=== PATIENT | male | born 1975 | race Caucasian/White ===

== ENCOUNTER → 2017-10-22 | Outpatient (REF) | payer BC, OTHER | LOC: M LAB REF 12:42 | DX: Z94.0 Kidney transplant status (principal) | CPT/HCPCS: 86900 ==

== ENCOUNTER → 2018-06-11 | Outpatient (CLI) | payer BC, OTHER | LOC: M RAD 16:06 | DX: N18.4 Chronic kidney disease, stage 4 (severe) (principal); I15.0 Renovascular hypertension; Z94.0 Kidney transplant status | CPT/HCPCS: G0365 ==

== ENCOUNTER → 2019-02-17 | Outpatient (CLI) | payer OTHER ==
[~2019-02-17] MED LIST: AMLO10TA5 PO; ASPI81TA83 OR; CALC1CAP31 PO; CARV3.12 PO; CELE10TA OR; CIPR-249 PO; FEBU40TA PO; FERR325T OR; FLAG500T PO; LEXA1TAB2 PO; MAGN500T2 OR; MULTIVIT OR; MYCO500T PO; NIAC500T64 PO; PRED5PAK PO; SODI325T9 PO; SODI650T PO; ULOR80TA PO
--- NOTE | 2019-02-17 08:19 | REP ---
Clinical: Preoperative assessment for kidney transplant surgery. Technique: Real time padron scale ultrasound examination using curved array transducer. Findings: I of the. Liver and pancreas are normal in contour, size, echogenicity without focal hepatic or pancreatic lesions identified. The spleen is mildly enlarged measuring 13.7 x 6.4 x 6.9 cm (splenic index equals 604). The gallbladder is normal and without gallstones, wall thickening, or pericholecystic fluid. No biliary ductal dilatation is appreciated and the common bile duct measures 3.3 mm diameter. The patient is status post bilateral [place] nephrectomy. Transplant kidney in the right lower quadrant measures 11.1 x 9.4 x 5.8 cm and appears mildly hyperechoic with few stable cystic changes measuring up to approximately 1.4 cm maximal diameter. No associated perinephric stranding or hydronephrosis noted. No ascites. Abdominal aorta appears normal and measures 1.7 cm maximal diameter with the left common iliac artery measuring 9.2 mm diameter and the right common iliac artery measuring 9.1 mm diameter. Impression: 1. Essentially stable appearance to the transplant kidney in the right lower quadrant with few cystic changes measuring up to 1.4 cm maximal diameter and no associated perinephric stranding or hydronephrosis. Electronically Signed by Jonny Ray MD 02/17/2019 08:11 A
== END ==
LOC: M RAD 07:15
PROVIDERS: ATTEND Internal Medicine Nephrology
DX: Z01.818 Encounter for other preprocedural examination (principal); N18.6 End stage renal disease

== ENCOUNTER → 2019-03-20 | Outpatient (REF) | payer OTHER ==
[~2019-03-20] MED LIST changes: -FEBU40TA PO; +FEBU40TA4 PO
[2019-03-20 19:23] LABS: CHOLESTEROL LEVEL 382 MG/DL (<200); CHOLESTEROL RISK RATIO 9.794 (<5); HDL CHOLESTEROL 39 MG/DL (>40); HEPATITIS B SURFACE ANTIGEN NEGATIVE (NEGATIVE); HEPATITIS C VIRUS ABY INDEX < 0.0 INDEX (<0.8); NON-HDL-C 343 MG/DL; TRIGLYCERIDES LEVEL 1085 MG/DL (<150)
[2019-03-21 09:49] LABS: HEPATITIS B SURFACE ANTIBODY POSITIVE (POSITIVE)
[2019-03-21 10:28] LABS: HEPATITIS B CORE ANTIBODY IGM NEGATIVE (NEGATIVE)
== END ==
LOC: M LAB REF 13:23
PROVIDERS: ATTEND Internal Medicine Nephrology
DX: N18.5 Chronic kidney disease, stage 5 (principal)

== ENCOUNTER → 2019-09-07 | Outpatient (CLI) | payer BC, OTHER ==
--- NOTE | 2019-09-10 11:35 | SLEEPCENT ---
DATE OF PROCEDURE: 09/07/2019 ORDERED BY: Tiffanie Palmer NP Nocturnal polysomnography was performed for evaluation of sleep physiology in this patient with history of excessive somnolence, snoring and nonrestorative sleep who has comorbidities of hypertension. 7 hours and 55 minutes of data were reviewed. There were 427 minutes of sleep identified. Sleep latency was prolonged at 18 minutes. REM latency was prolonged at 157-minute. Sleep architecture was fair with some fragmentation. There were two REM cycles noted. Overall sleep efficiency 90.9%. The patient's electrocardiogram showed a sinus rhythm with an average heart rate of 60 beats per minute. EEG showed reasonably normal waveforms for awake and sleep. There were 281 respiratory events identified of 10 seconds in duration or greater for an apnea-hypopnea index of 39.5. The events were obstructive and central, 141 central events were identified. The events were not exclusive to sleep stage nor body posture. Arousals from respiratory events occurred 8.7 times per hour and oxygen desaturations were seen into the low 80s. There was some activity in the limb leads appreciated. Limb movement arousals were few. IMPRESSION: Complex obstructive sleep apnea syndrome (G47.33, G47.31). Apnea-hypopnea index 39.5. RECOMMENDATIONS: The patient should be encouraged to return to sleep disorder center for pressure therapy. In the interim, alcohol and sedative avoidance should be practiced and caution exercised during operation of motor vehicles. Given the frequency of central apneas on the diagnostic study, a bilevel device and backup rate may be necessary to address the patient's problem.
== END ==
LOC: M SLEEP 19:41
PROVIDERS: ATTEND Nurse Practitioner Family
DX: G47.33 Obstructive sleep apnea (adult) (pediatric) (principal); G47.31 Primary central sleep apnea

== ENCOUNTER 2019-09-12 09:00 | Day surgery (SDC) | payer BC, OTHER ==
[~2019-09-12] VITALS: Ht 175.3 cm; Wt 107.0 kg
[~2019-09-12 09:00] MED LIST changes: +LIDOCAINE 2% INJ 100 MG/5 ML SDV (FOR ANES.) As Ordered ONE; +NS 1,000 ML IV ONE
[2019-09-12] MEDS ORDERED: propofoL 200 MG/20 ML VIAL As Ordered ONE (10:00)
--- NOTE | 2019-09-12 11:34 | ROOR ---
Patient Name: Alin Washington Procedure Date: 09/12/2019 11:01 AM Date of : 1975 Age: 43 Room: [facility] Gender: Male Note Status: Finalized Procedure: Colonoscopy Indications: Follow-up of diverticulitis Providers: Marlon Murphy MD Referring MD: JAYESH WYLIE MD Requesting Provider: Medicines: Monitored Anesthesia Care Complications: No immediate complications. Procedure: Pre-Anesthesia Assessment: - Prior to the procedure, a History and Physical was performed, and patient medications and allergies were reviewed. The patient is competent. The risks and benefits of the procedure and the sedation options and risks were discussed with the patient. All questions were answered and informed consent was obtained. Patient identification and proposed procedure were verified by the physician, the nurse and the anesthesiologist in the procedure room. Mental Status Examination: alert and oriented. Airway Examination: normal oropharyngeal airway and neck mobility. Respiratory Examination: clear to auscultation. CV Examination: normal. Prophylactic Antibiotics: The patient does not require prophylactic antibiotics. Prior Anticoagulants: The patient has taken no previous anticoagulant or antiplatelet agents. ASA Grade Assessment: IV - A patient with severe systemic disease that is a constant threat to life. After reviewing the risks and benefits, the patient was deemed in satisfactory condition to undergo the procedure. The anesthesia plan was to use monitored anesthesia care (MAC). Immediately prior to administration of medications, the patient was re-assessed for adequacy to receive sedatives. The heart rate, respiratory rate, oxygen saturations, blood pressure, adequacy of pulmonary ventilation, and response to care were monitored throughout the procedure. The physical status of the patient was re-assessed after the procedure. The Colonoscope was introduced through the anus and advanced to the cecum, identified by appendiceal orifice and ileocecal valve. The colonoscopy was performed without difficulty. The patient tolerated the procedure well. The quality of the bowel preparation was good. The ileocecal valve, appendiceal orifice, and rectum were photographed. Scope insertion time was 4 minutes. Scope withdrawal time was 9 minutes. The total duration of the procedure was 15 minutes. Findings: The perianal and digital rectal examinations were normal. Multiple small and large-mouthed diverticula were found from sigmoid to descending colon. There was no evidence of diverticular bleeding. Non-bleeding external and internal hemorrhoids were found during retroflexion. The hemorrhoids were medium-sized. The exam was otherwise without abnormality on direct and retroflexion views. Impression: - Moderate diverticulosis from sigmoid to descending colon. There was no evidence of diverticular bleeding. - Non-bleeding external and internal hemorrhoids. - The examination was otherwise normal on direct and retroflexion views. - No specimens collected. Recommendation: - Patient has a contact number available for emergencies. The signs and symptoms of potential delayed complications were discussed with the patient. Return to normal activities tomorrow. Written discharge instructions were provided to the patient. - High fiber diet. - Continue present medications. - Use fiber, for example Citrucel, Fibercon, Konsyl or Metamucil. - Repeat colonoscopy at age 52 for screening purposes. - Telephone GI clinic if symptomatic in 2 weeks. - Return to primary care physician. Marlon Murphy MD Marlon Murphy MD 09/12/2019 11:34:49 AM Electronically signed by Marlon Murphy MD Number of Addenda: 0 Note Initiated On: 09/12/2019 11:01 AM Estimated Blood Loss: Estimated blood loss was minimal.
[2019-09-12 11:50] VITALS: BP 135/67
== END 2019-09-12 11:57 | disposition home or self-care (01) ==
LOC: M SDC 09:00
PROVIDERS: ATTEND Internal Medicine Gastroenterology
DX: Z12.11 Encounter for screening for malignant neoplasm of colon (principal); K64.8 Other hemorrhoids; K57.32 Diverticulitis of large intestine without perforation or abscess without bleeding; K57.30 Diverticulosis of large intestine without perforation or abscess without bleeding; E78.5 Hyperlipidemia, unspecified; F41.9 Anxiety disorder, unspecified; N17.8 Other acute kidney failure; F99 Mental disorder, not otherwise specified; F17.210 Nicotine dependence, cigarettes, uncomplicated; Z94.0 Kidney transplant status

== ENCOUNTER → 2019-09-12 | Outpatient (CLI) | payer BC, OTHER ==
[2019-09-12 10:57] LABS: CALCIUM LEVEL 10.7 MG/DL (8.5-10.1); CREATININE FOR GFR 6.76 MG/DL (0.70-1.30); GLOMERULAR FILTRATION RATE 9.7 (>60); POTASSIUM SERUM 4.3 MEQ/L (3.5-5.1)
== END ==
LOC: M LAB 08:41
PROVIDERS: ATTEND Internal Medicine Gastroenterology
DX: K57.33 Diverticulitis of large intestine without perforation or abscess with bleeding (principal)

== ENCOUNTER → 2019-09-17 | Outpatient (CLI) | payer BC, OTHER ==
[~2019-09-17] MED LIST changes: +GASTROGRAFIN SOLUTION 30ML (Q9963) As Ordered ONE; +ISOVUE-370 76% 100ML VIAL (Q9967) As Ordered ONE; -LIDOCAINE 2% INJ 100 MG/5 ML SDV (FOR ANES.) As Ordered ONE; -NS 1,000 ML IV ONE
--- NOTE | 2019-09-17 18:13 | REP ---
CT of the abdomen and pelvis without and with IV contrast and with bowel contrast for evaluation of renal transplant. Comparison is 03/05/2018. There are bilateral nephrectomy is and there is a renal transplant in the pelvis on the left. There are no calculi in the transplanted kidney. There is no hydronephrosis in the transplanted kidney. The the no solid or cystic masses in the transplanted kidney. The transplanted kidney measures 11.7 cm craniocaudad length and is normal size. However, there is diffuse cortical thinning accompanied by increased renal pelvic fat. There is symmetric enhancement of the renal cortex. There is no hydronephrosis. The visualized lung mcdonald are unremarkable. The hepatic parenchyma is homogeneous. The gallbladder and pancreas are unremarkable. The spleen is enlarged measuring 15 cm craniocaudad by 15 cm AP. The splenic parenchyma is homogeneous. The adrenals are unremarkable. The [place] renal fossa are unremarkable. The abdominal aorta is unremarkable. There is no periaortic adenopathy or mass. The bowel is unremarkable except for descending colon/sigmoid colon diverticulosis without diverticulitis. Pelvis: The appendix is unremarkable. There is no ascites or adenopathy. The pelvic bowel loops are unremarkable. The bladder is incompletely distended but otherwise unremarkable. Impression: Bilateral nephrectomy sand renal transplant in the pelvis on the right. The transplanted kidney is normal size, however there is diffuse renal cortical thinning. The renal cortex enhances symmetrically. There are no solid or cystic renal masses. There is no hydronephrosis. There is no perinephric stranding. Diverticulosis without diverticulitis. Splenomegaly. Electronically Signed by Pablito Camacho MD 09/17/2019 06:04 P
== END ==
LOC: M RAD 14:16
PROVIDERS: ATTEND Internal Medicine Nephrology
DX: Z01.818 Encounter for other preprocedural examination (principal); Z99.2 Dependence on renal dialysis; Z90.5 Acquired absence of kidney; Z94.0 Kidney transplant status; R16.1 Splenomegaly, not elsewhere classified; K57.30 Diverticulosis of large intestine without perforation or abscess without bleeding
CPT/HCPCS: 74178; Q9963; Q9967

== ENCOUNTER → 2020-01-21 | Outpatient (CLI) | payer BC, OTHER ==
[~2020-01-21] MED LIST changes: -GASTROGRAFIN SOLUTION 30ML (Q9963) As Ordered ONE; -ISOVUE-370 76% 100ML VIAL (Q9967) As Ordered ONE
--- NOTE | 2020-02-03 14:23 | SLEEPCENT ---
DATE OF STUDY: 01/21/2020 ORDERED BY: Tiffanie Palmer Nocturnal polysomnography was performed for the titration of pressure therapy in this patient with obstructive sleep apnea syndrome and apnea-hypopnea index of 39.5. For testing, the patient was fit with a ResMed Quattro full face mask of large size and 4 cm of water pressure was applied to the circuit and the lights were extinguished. 7 hours and 27 minutes of data were reviewed. There were 326.5 minutes of sleep identified. Sleep latency was mildly prolonged at 30.5 minutes. REM latency was further prolonged at 206 minutes. Sleep architecture improved in the midportion of the study. Overall sleep efficiency was 74.4%. The electrocardiogram showed a sinus rhythm with an average heart rate of 65 beats per minute. Electroencephalogram (EEG) showed normal waveforms for awake and sleep. In response to respiratory events, C-PAP was increased from 4 to 8. Subsequently, a bilevel pressure was applied and advanced to 12/8 and a backup rate was added due to the emergence of central apneas. On review of the study, no optimal pressure was identified. Best sleep was seen on C-PAP at a pressure of +6. IMPRESSION: Complex obstructive sleep apnea syndrome (G47.31, G47.33). RECOMMENDATION: Initiation of C-PAP at a pressure of +6 may be sufficient to overcome obstructive respiratory events while minimizing the emergence of central apneas. Close clinical follow up is recommended and the patient may require supplemental oxygen in addition to low C-PAP to address desaturations. If clinical response is not forthcoming, referral back to the sleep disorder center for a full night retitration may be necessary.
== END ==
LOC: M SLEEP 20:00
PROVIDERS: ATTEND Nurse Practitioner Family
DX: G47.33 Obstructive sleep apnea (adult) (pediatric) (principal); G47.31 Primary central sleep apnea

== ENCOUNTER → 2020-02-17 | Outpatient (CLI) | payer BC, OTHER ==
[~2020-02-17] MED LIST changes: -AMLO10TA5 PO; +AMLO1TAB25 PO
[2020-03-15 19:34] LABS: PLATELET COUNT, AUTOMATED 137 10^3/uL (150-450)
[2020-03-15 19:43] LABS: INR 1.06; PARTIAL THROMBOPLASTIN TIME 31.9 SECONDS (25.0-38.4)
[2020-03-26 15:36] LABS: HISTOPLASMOSIS ANTIBODY SEE SEPARATE REPORT
[2020-03-26 15:37] LABS: ASPERGILLUS FLAVUS ABY See Separate Report; ASPERGILLUS FUMIGATUS ABY See Separate Report; ASPERGILLUS NIGER ABY See Separate Report; BLASTOMYCES ANTIBODY LEVEL SEE SEPARATE REPORT; CRYPTOCOCCUS ANTIGEN SER SEE SEPARATE REPORT; CRYPTOCOCCUS ANTIGEN SER TITER SEE SEPARATE REPORT
[2020-04-23 13:01] LABS: AUREOBASIDIUM PULLULANS SEE SEPARATE REPORT; MICROPOLYSPORA FAENI AB SEE SEPARATE REPORT; PIGEON SERUM AB SEE SEPARATE REPORT
[2020-04-23 13:02] LABS: ASPERGILLUS FUMIGATUS AB SEE SEPARATE REPORT; THERMOACTINOMYCES SACCHARI SEE SEPARATE REPORT; THERMOACTINOMYCES VULGARIS SEE SEPARATE REPORT
== END ==
LOC: M LAB 10:16
PROVIDERS: ATTEND Internal Medicine Pulmonary Disease
DX: R91.1 Solitary pulmonary nodule (principal)

== ENCOUNTER → 2020-02-17 | Outpatient (CLI) | payer BC, OTHER ==
[2020-05-11 14:16] LABS: GLUCOSE, FASTING SEE SEPARATE REPORT
== END ==
LOC: M LAB 10:18
PROVIDERS: ATTEND Internal Medicine
DX: E78.1 Pure hyperglyceridemia (principal)

== ENCOUNTER → 2020-03-09 | Outpatient (CLI) | payer BC, OTHER ==
[~2020-03-09] MED LIST changes: +LIDOCAINE 1% MDV 20ML VIAL As Ordered ONE
--- NOTE | 2020-04-16 09:42 | REP ---
LIMITED CT STUDY OF THE CHEST: HISTORY: Comparison prior CT study showed an oval-shaped nodular density. The patient was referred for CT-guided needle biopsy of this. FINDINGS: The patient was interviewed and informed consent was obtained. Preliminary CT imaging for targeting shows that the lesion has regressed substantially in the interval since the prior study and is now linear morphologically. Healing inflammatory changes suspected. The biopsy was accordingly, deferred. I would suggest follow up CT imaging in 4-6 months. MTDD
== END ==
LOC: M RAD 08:41 → M IRPRO 08:41
PROVIDERS: ATTEND Internal Medicine Pulmonary Disease
DX: R91.1 Solitary pulmonary nodule (principal); Z53.8 Procedure and treatment not carried out for other reasons

== ENCOUNTER → 2020-07-07 | Outpatient (CLI) | payer BC, OTHER ==
[~2020-07-07] MED LIST changes: -LIDOCAINE 1% MDV 20ML VIAL As Ordered ONE
[2020-07-07 09:10] LABS: EOS # 0.1 10^3/uL (0.0-0.5); EOS % 2.9 % (0.0-3.0); HEMATOCRIT 40.5 % (42.0-52.0); HEMOGLOBIN 13.3 g/dl (13.5-17.5); LYMPH # 0.3 10^3/uL (1.5-5.0); LYMPH % 7.3 % (24.0-44.0); MEAN CORPUSCULAR HEMOGLOBIN 29.6 pg (27.0-33.0); MEAN CORPUSCULAR HGB CONC 32.8 g/dl (32.0-36.5); MEAN CORPUSCULAR VOLUME 90.2 fl (80.0-96.0); MONO # 0.4 10^3/uL (0.0-0.8); MONO % 9.2 % (0.0-5.0); NEUTROPHILS # 3.2 10^3/uL (1.5-8.5); NEUTROPHILS % 78.1 % (36.0-66.0); PLATELET COUNT, AUTOMATED 128 10^3/uL (150-450); RED BLOOD COUNT 4.49 10^6/uL (4.30-6.10); WHITE BLOOD COUNT 4.1 10^3/uL (4.0-10.0)
[2020-07-07 09:16] LABS: APPEARANCE, URINE CLEAR (CLEAR); BACTERIA, URINE AUTO NEGATIVE (NEGATIVE); BILIRUBIN, URINE AUTO NEGATIVE (NEGATIVE); BLOOD, URINE BLOOD NEGATIVE (NEGATIVE); COLOR, URINE YELLOW (YELLOW); GLUCOSE, URINE (UA) AUTO NEGATIVE (NEGATIVE); KETONE, URINE AUTO NEGATIVE (NEGATIVE); LEUKOCYTE ESTERASE, URINE AUTO TRACE (NEGATIVE); NITRITE, URINE AUTO NEGATIVE (NEGATIVE); PROTEIN, URINE AUTO NEGATIVE (NEGATIVE); RBC, URINE AUTO 3 /HPF (0-3); SPECIFIC GRAVITY URINE AUTO 1.018 (1.002-1.035); SQUAMOUS EPITHELIAL CELL UR AU 0 /HPF (0-6); UROBILINOGEN, URINE AUTO 0.2 mg/dL (0.0-2.0); WBC, URINE AUTO 25 /HPF (0-3)
[2020-07-07 09:54] LABS: ALBUMIN 3.9 GM/DL (3.2-5.2); BLOOD UREA NITROGEN 25 MG/DL (7-18); CALCIUM LEVEL 9.9 MG/DL (8.5-10.1); CARBON DIOXIDE LEVEL 24 MEQ/L (21-32); CHLORIDE LEVEL 104 MEQ/L (98-107); CREATININE FOR GFR 1.35 MG/DL (0.70-1.30); GLOMERULAR FILTRATION RATE > 60.0 (>60); GLUCOSE, FASTING 159 MG/DL (70-100); MAGNESIUM LEVEL 1.9 MG/DL (1.8-2.4); PHOSPHORUS LEVEL 1.5 MG/DL (2.5-4.9); POTASSIUM SERUM 4.2 MEQ/L (3.5-5.1); SODIUM LEVEL 137 MEQ/L (136-145)
== END ==
LOC: M LAB 08:01
PROVIDERS: ATTEND Physician Assistant Surgical
DX: Z94.0 Kidney transplant status (principal); N18.5 Chronic kidney disease, stage 5; D84.9 Immunodeficiency, unspecified; Z79.899 Other long term (current) drug therapy

== ENCOUNTER → 2020-09-03 | Outpatient (CLI) | payer BC, OTHER ==
[2020-09-03 09:23] LABS: APPEARANCE, URINE CLEAR (CLEAR); BACTERIA, URINE AUTO 1+ (NEGATIVE); BILIRUBIN, URINE AUTO NEGATIVE (NEGATIVE); BLOOD, URINE BLOOD 1+ (NEGATIVE); COLOR, URINE YELLOW (YELLOW); GLUCOSE, URINE (UA) AUTO NEGATIVE (NEGATIVE); KETONE, URINE AUTO NEGATIVE (NEGATIVE); LEUKOCYTE ESTERASE, URINE AUTO 1+ (NEGATIVE); NITRITE, URINE AUTO NEGATIVE (NEGATIVE); PROTEIN, URINE AUTO 1+ mg/dL (NEGATIVE); RBC, URINE AUTO 3 /HPF (0-3); SPECIFIC GRAVITY URINE AUTO 1.015 (1.002-1.035); SQUAMOUS EPITHELIAL CELL UR AU 0 /HPF (0-6); UROBILINOGEN, URINE AUTO 0.2 mg/dL (0.0-2.0); WBC, URINE AUTO 62 /HPF (0-3)
[2020-09-03 09:25] LABS: BASO % 0.8 % (0.0-1.0); EOS # 0.1 10^3/uL (0.0-0.5); EOS % 2.7 % (0.0-3.0); HEMATOCRIT 40.2 % (42.0-52.0); HEMOGLOBIN 13.3 g/dl (13.5-17.5); LYMPH # 0.6 10^3/uL (1.5-5.0); LYMPH % 14.6 % (24.0-44.0); MEAN CORPUSCULAR HEMOGLOBIN 28.5 pg (27.0-33.0); MEAN CORPUSCULAR HGB CONC 33.1 g/dl (32.0-36.5); MEAN CORPUSCULAR VOLUME 86.1 fl (80.0-96.0); MONO # 0.5 10^3/uL (0.0-0.8); MONO % 11.9 % (0.0-5.0); NEUTROPHILS # 2.6 10^3/uL (1.5-8.5); NEUTROPHILS % 68.7 % (36.0-66.0); PLATELET COUNT, AUTOMATED 140 10^3/uL (150-450); RED BLOOD COUNT 4.67 10^6/uL (4.30-6.10); WHITE BLOOD COUNT 3.8 10^3/uL (4.0-10.0)
[2020-09-03 09:50] LABS: ALBUMIN 4.1 GM/DL (3.2-5.2); BLOOD UREA NITROGEN 19 MG/DL (7-18); CALCIUM LEVEL 10.2 MG/DL (8.5-10.1); CARBON DIOXIDE LEVEL 27 MEQ/L (21-32); CHLORIDE LEVEL 106 MEQ/L (98-107); CREATININE FOR GFR 1.34 MG/DL (0.70-1.30); GLOMERULAR FILTRATION RATE > 60.0 (>60); GLUCOSE, FASTING 123 MG/DL (70-100); PHOSPHORUS LEVEL 1.6 MG/DL (2.5-4.9); POTASSIUM SERUM 4.4 MEQ/L (3.5-5.1); SODIUM LEVEL 140 MEQ/L (136-145)
== END ==
LOC: M LAB 08:33
PROVIDERS: ATTEND Physician Assistant Surgical
DX: D84.9 Immunodeficiency, unspecified (principal); Z94.0 Kidney transplant status; Z79.899 Other long term (current) drug therapy

== ENCOUNTER → 2020-09-03 | Outpatient (CLI) | payer BC, OTHER ==
[2020-09-03 09:56] LABS: ALBUMIN 4.1 GM/DL (3.2-5.2); ALT/SGPT 81 U/L (12-78); BILIRUBIN,TOTAL 1.3 MG/DL (0.2-1.0); BLOOD UREA NITROGEN 20 MG/DL (7-18); CALCIUM LEVEL 10.3 MG/DL (8.5-10.1); CARBON DIOXIDE LEVEL 25 MEQ/L (21-32); CHLORIDE LEVEL 108 MEQ/L (98-107); CHOLESTEROL LEVEL 256 MG/DL (<200); CHOLESTEROL RISK RATIO 7.757 (<5); CREATININE FOR GFR 1.31 MG/DL (0.70-1.30); GLOMERULAR FILTRATION RATE > 60.0 (>60); GLUCOSE, FASTING 123 MG/DL (70-100); HDL CHOLESTEROL 33 MG/DL (>40); NON-HDL-C 223 MG/DL; POTASSIUM SERUM 4.3 MEQ/L (3.5-5.1); SODIUM LEVEL 140 MEQ/L (136-145); TOTAL PROTEIN 6.9 GM/DL (6.4-8.2); TRIGLYCERIDES LEVEL 577 MG/DL (<150)
== END ==
LOC: M LAB 08:35
PROVIDERS: ATTEND Internal Medicine
DX: E78.1 Pure hyperglyceridemia (principal)

== ENCOUNTER → 2020-10-01 | Outpatient (CLI) | payer BC, OTHER ==
[2020-10-01 09:24] LABS: BASO % 0.6 % (0.0-1.0); EOS # 0.1 10^3/uL (0.0-0.5); EOS % 1.9 % (0.0-3.0); HEMATOCRIT 41.4 % (42.0-52.0); HEMOGLOBIN 13.8 g/dl (13.5-17.5); LYMPH # 0.5 10^3/uL (1.5-5.0); LYMPH % 11.5 % (24.0-44.0); MEAN CORPUSCULAR HEMOGLOBIN 29.2 pg (27.0-33.0); MEAN CORPUSCULAR HGB CONC 33.3 g/dl (32.0-36.5); MEAN CORPUSCULAR VOLUME 87.5 fl (80.0-96.0); MONO # 0.4 10^3/uL (0.0-0.8); MONO % 8.3 % (2.0-8.0); NEUTROPHILS # 3.6 10^3/uL (1.5-8.5); NEUTROPHILS % 76.4 % (36.0-66.0); PLATELET COUNT, AUTOMATED 145 10^3/uL (150-450); RED BLOOD COUNT 4.73 10^6/uL (4.30-6.10); WHITE BLOOD COUNT 4.7 10^3/uL (4.0-10.0)
[2020-10-01 09:38] LABS: APPEARANCE, URINE CLEAR (CLEAR); BACTERIA, URINE AUTO NEGATIVE (NEGATIVE); BILIRUBIN, URINE AUTO NEGATIVE (NEGATIVE); BLOOD, URINE BLOOD NEGATIVE (NEGATIVE); COLOR, URINE YELLOW (YELLOW); GLUCOSE, URINE (UA) AUTO NEGATIVE (NEGATIVE); KETONE, URINE AUTO NEGATIVE (NEGATIVE); LEUKOCYTE ESTERASE, URINE AUTO TRACE (NEGATIVE); MUCUS, URINE SMALL (NEGATIVE); NITRITE, URINE AUTO NEGATIVE (NEGATIVE); PROTEIN, URINE AUTO NEGATIVE (NEGATIVE); RBC, URINE AUTO 0 /HPF (0-3); SPECIFIC GRAVITY URINE AUTO 1.013 (1.002-1.035); SQUAMOUS EPITHELIAL CELL UR AU 0 /HPF (0-6); UROBILINOGEN, URINE AUTO 0.2 mg/dL (0.0-2.0); WBC, URINE AUTO 6 /HPF (0-3)
[2020-10-01 10:41] LABS: ALBUMIN 4.2 GM/DL (3.2-5.2); BLOOD UREA NITROGEN 15 MG/DL (7-18); CARBON DIOXIDE LEVEL 28 MEQ/L (21-32); CHLORIDE LEVEL 107 MEQ/L (98-107); GLOMERULAR FILTRATION RATE > 60.0 (>60); GLUCOSE, FASTING 144 MG/DL (70-100); MAGNESIUM LEVEL 1.7 MG/DL (1.8-2.4); PHOSPHORUS LEVEL 1.3 MG/DL (2.5-4.9); POTASSIUM SERUM 4.4 MEQ/L (3.5-5.1); SODIUM LEVEL 138 MEQ/L (136-145)
== END ==
LOC: M LAB 08:26
PROVIDERS: ATTEND Physician Assistant Surgical
DX: Z94.0 Kidney transplant status (principal); N18.5 Chronic kidney disease, stage 5; D84.9 Immunodeficiency, unspecified; Z79.899 Other long term (current) drug therapy

== ENCOUNTER → 2020-11-04 | Outpatient (REF) | payer OTHER | LOC: M LAB REF 16:41 | PROVIDERS: ATTEND Internal Medicine Nephrology | DX: I15.0 Renovascular hypertension (principal); Z94.0 Kidney transplant status ==

== ENCOUNTER → 2020-12-15 | Outpatient (REF) | payer OTHER | LOC: M LAB REF 17:13 | PROVIDERS: ATTEND Internal Medicine Nephrology | DX: Z94.0 Kidney transplant status (principal) ==

== ENCOUNTER → 2021-04-08 | Outpatient (CLI) | payer BC, OTHER ==
[~2021-04-08] MED LIST changes: +ASPI-1 PO; +ATOR40TA75 PO; +CINA30TA5 PO; +FAMO20TA PO; +FEBU40TA2 PO; +SERT50TA29 PO; +TACR1CAP3 PO
== END ==
LOC: M LABSMTC 11:37
PROVIDERS: ATTEND Anesthesiology
DX: Z01.812 Encounter for preprocedural laboratory examination (principal); Z20.822 Contact with and (suspected) exposure to COVID-19

== ENCOUNTER 2021-04-13 10:40 | Day surgery (SDC) | payer BC, OTHER ==
[~2021-04-13] VITALS: Ht 175.3 cm; Wt 110.4 kg
[~2021-04-13 10:40] MED LIST changes: +LIDOCAINE 1% MDV 20ML VIAL SQ PRN; +LIDOCAINE 2% 100MG/5ML SDV (FOR ANES.) As Ordered ONE; +LR 1,000 ML IV ONE; +MIDAZOLAM INJ 2MG/2ML VIAL (J2250 PER 1MG) As Ordered ONE; +fentaNYL 250 MCG/5 ML INJECTION (J3010) As Ordered ONE; +propofoL 200 MG/20 ML VIAL As Ordered ONE
[2021-04-13] MEDS ORDERED: propofoL 500 MG/50 ML VIAL As Ordered ONE ×2 (11:01→12:38)
[2021-04-13] MEDS ORDERED: BUPIVACAINE/EPIN 0.5% 30 ML VIAL As Ordered ONE (11:15)
[2021-04-13] MEDS ORDERED: LIDOCAINE 1% SDV 30ML VIAL As Ordered ONE (11:15)
[2021-04-13] MEDS ORDERED: HEPARIN SOD (PORCINE) 5000UNITS/ML 1ML VIAL/SYRINGE As Ordered ONE (11:16)
[2021-04-13] MEDS ORDERED: ceFAZolin 1GM VIAL (J0690 PER 500MG) As Ordered ONE (11:48)
[2021-04-13] MEDS ORDERED: propofoL 200 MG/20 ML VIAL As Ordered ONE (12:21)
--- NOTE | 2021-04-13 14:10 | ROOPDOC ---
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 PROCEDURE PERFORMED: Ligation of left arm brachiocephalic AV fistula. SURGEON: Vonda Sinha MD ANESTHESIA: Local and sedation. ESTIMATED BLOOD LOSS: Approximately 25 mL. COMPLICATIONS: None. FINDINGS: Large pseudoaneurysm at AV anastomosis. Good radial pulse after fistula ligation. SPECIMENS REMOVED: Pseudoaneurysm DESCRIPTION OF PROCEDURE: Patient is brought into the operating room and placed on operating table in supine position. After adequate anesthesia was administered patient's left arm was prepped and draped in standard surgical fashion. Incision was made along the length of the pseudoaneurysm at the AV fistula anastomosis. Incision was advanced using Bovie cautery and Metzenbaum scissors. The brachial artery was identified and dissected free from the surrounding tissues and then encircled with a vessel loop for control. Attention was then drawn to the large pseudoaneurysm at the anastomotic site. The pseudoaneurysm was freed from the surrounding tissues with Metzenbaum scissors and Bovie electrocautery. The proximal and distal end of the pseudoaneurysm were isolated with Rosa clamps and then resected. Both ends were suture ligated with 2-0 Vicryl suture. The wound was thoroughly irrigated in anticipation of closure. Hemostasis was controlled with Bovie electrocautery and 3-0 silk sutures. The wound was then closed in layers using 2-0 Vicryl sutures and 4-0 Vicryl sutures and the skin was approximated using 4-0 Monocryl suture. Dermabond, Telfa and Tegaderm were then placed over the wound and an Dylan bandage was then placed over the arm. Patient tolerated procedure well and sent to the recovery room in stable condition. VONDA SINHA MD Apr 13, 2021 14:10
[2021-04-13 14:29] VITALS: BP 142/87
== END 2021-04-13 14:13 | disposition home or self-care (01) ==
LOC: M SDC 10:40
PROVIDERS: ATTEND Surgery Vascular Surgery
DX: T82.898A Other specified complication of vascular prosthetic devices, implants and grafts, initial encounter (principal); I74.2 Embolism and thrombosis of arteries of the upper extremities; Y83.2 Surgical operation with anastomosis, bypass or graft as the cause of abnormal reaction of the patient, or of later complication, without mention of misadventure at the time of the procedure; E78.5 Hyperlipidemia, unspecified; N18.4 Chronic kidney disease, stage 4 (severe); K57.90 Diverticulosis of intestine, part unspecified, without perforation or abscess without bleeding; F41.9 Anxiety disorder, unspecified; F32.9 Major depressive disorder, single episode, unspecified; Z79.82 Long term (current) use of aspirin; Z79.899 Other long term (current) drug therapy; Z79.52 Long term (current) use of systemic steroids; G47.33 Obstructive sleep apnea (adult) (pediatric)
CPT/HCPCS: 36831; 88304; J0690; J1644; J2250; J3010

== ENCOUNTER 2021-04-22 05:32 | Emergency (ER) | payer BC, OTHER ==
[~2021-04-22] VITALS: Ht 175.3 cm; Wt 111.1 kg
[~2021-04-22 05:32] MED LIST changes: -LIDOCAINE 1% MDV 20ML VIAL SQ PRN; -LIDOCAINE 2% 100MG/5ML SDV (FOR ANES.) As Ordered ONE; -LR 1,000 ML IV ONE; -MIDAZOLAM INJ 2MG/2ML VIAL (J2250 PER 1MG) As Ordered ONE; -fentaNYL 250 MCG/5 ML INJECTION (J3010) As Ordered ONE; -propofoL 200 MG/20 ML VIAL As Ordered ONE
[2021-04-22 06:29] LABS: ABG BASE EXCESS -1.2 (-2.0-2.0); ABG HCO3 22.1 MEQ/L (22.0-26.0); ABG O2 SATURATION 97.6 % (95.0-99.0); ABG PARTIAL PRESSURE CO2 32.7 mmHg (35.0-45.0); ABG PARTIAL PRESSURE O2 100.3 mmHg (75.0-100.0); ABG STANDARD HCO3 23.5 MEQ/L (22.0-26.0); ABG TOTAL CO2 23.1 MEQ/L (22.0-29.0); ABG pH (ARTERIAL) 7.447 UNITS (7.350-7.450)
[2021-04-22 06:35] LABS: BASO % 0.5 % (0.0-1.0); EOS % 0.5 % (0.0-3.0); HEMATOCRIT 38.6 % (42.0-52.0); HEMOGLOBIN 13.5 g/dl (13.5-17.5); LYMPH # 0.6 10^3/uL (1.5-5.0); MEAN CORPUSCULAR VOLUME 85.8 fl (80.0-96.0); MONO # 0.6 10^3/uL (0.0-0.8); MONO % 13.9 % (2.0-8.0); NEUTROPHILS # 3.1 10^3/uL (1.5-8.5); NEUTROPHILS % 71.2 % (36.0-66.0); PLATELET COUNT, AUTOMATED 125 10^3/uL (150-450); WHITE BLOOD COUNT 4.4 10^3/uL (4.0-10.0)
[2021-04-22] MEDS ORDERED: dexameTHASONE 20MG/5ML VIAL (J1100 PER 1MG) IV ONE (07:05)
[2021-04-22 07:20] LABS: ALBUMIN 4.2 GM/DL (3.2-5.2); ALT/SGPT 113 U/L (12-78); BILIRUBIN,DIRECT 0.3 MG/DL (0.0-0.2); BILIRUBIN,TOTAL 1.6 MG/DL (0.2-1.0); BLOOD UREA NITROGEN 14 MG/DL (7-18); CALCIUM LEVEL 9.8 MG/DL (8.5-10.1); CARBON DIOXIDE LEVEL 22 MEQ/L (21-32); CHLORIDE LEVEL 106 MEQ/L (98-107); CK-MB VALUE MASS < 1.0 NG/ML (<3.6); CPK CREATINE PHOSPHOKINASE 90 U/L (39-308); CREATININE FOR GFR 1.19 MG/DL (0.70-1.30); GLOMERULAR FILTRATION RATE > 60.0 (>60); GLUCOSE, FASTING 178 MG/DL (70-100); MB/CK RELATIVE INDEX 1.11 (< OR =4); NT-PRO BNP 23 PG/ML (<125); POTASSIUM SERUM 4.1 MEQ/L (3.5-5.1); SODIUM LEVEL 138 MEQ/L (136-145); TROPONIN I < 0.02 NG/ML (< 0.10)
[2021-04-22 08:03] LABS: INR 1.12; PROTHROMBIN TIME 14.9 SECONDS (12.7-14.5)
[2021-04-22 08:04] LABS: PARTIAL THROMBOPLASTIN TIME 34.2 SECONDS (25.9-37.0)
[2021-04-22] MEDS ORDERED: ECOT81TA5 PO (08:33)
[2021-04-22] MEDS ORDERED: PRED5TA PO (08:33)
[2021-04-22] MEDS ORDERED: TACR0.5C3 PO (08:33)
[2021-04-22] MEDS ORDERED: ACET-907 PO (08:34)
[2021-04-22] MEDS ORDERED: HOME MED LIST COMPLETE! XX SCH (08:40)
--- NOTE | 2021-04-22 09:38 | REP ---
INDICATION: DYSPNEA/COUGH. COMPARISON: Comparison chest x-ray September 06, 2010. TECHNIQUE: Portable upright AP chest radiograph. FINDINGS: The lungs are well inflated and free of infiltrate. Pleural angles are sharp. Heart size is normal. Pulmonary vasculature is not increased. EKG monitoring electrodes are present. IMPRESSION: No active disease. <Electronically signed by Cornell Medrano > 04/22/21 [id number]
[2021-04-22 10:14] LABS: CK-MB VALUE MASS < 1.0 NG/ML (<3.6); CPK CREATINE PHOSPHOKINASE 85 U/L (39-308); MB/CK RELATIVE INDEX 1.18 (< OR =4); TROPONIN I 0.08 NG/ML (< 0.10)
[2021-04-22] MEDS ORDERED: [UNRECOGNIZED DRUG - OTHER] (10:55)
[2021-04-22 14:00] VITALS: BP 132/63
--- NOTE | 2021-04-22 19:59 | ECGEPIP ---
[facility] - ED Test Date: 2021-04-22 Pat Name: FLORENTINO HEWITT Department: Room: - Gender: Male [employer] Super[employer]: ED : 1975 Requested By: JEREL Ring Order Number: [id number] Reading MD: Angelina Rivers Measurements Intervals [place] Rate: 92 P: 43 NM: 142 QRS: 105 QRSD: 96 T: 27 QT: 346 QTc: 427 Interpretive Statements Normal sinus rhythm Rightward axis Incomplete right bundle branch block NSTTW abnormalities No prior Electronically Signed on 04-22-2021 19:59:17 EDT by Angelina Rivers
[2021-04-25 17:07] LABS: MYCOPHENOLIC ACID SERUM 3.5 ug/mL (1.0-3.5)
== END 2021-04-22 14:36 | disposition home or self-care (01) ==
LOC: M ED 05:32
DX: J96.01 Acute respiratory failure with hypoxia (principal); U07.1 COVID-19; Z94.0 Kidney transplant status; I45.19 Other right bundle-branch block; I10 Essential (primary) hypertension
CPT/HCPCS: 71045; 80048; 80076; 80180; 80197; 82550; 82553; 82803; 83605; 83880; 84443; 84484; 85025; 85610; 85730; 87040; 87798; 93005; 93041; 96374; 99285; J1100

== ENCOUNTER 2021-04-22 14:40 | Outpatient (CLI) | payer BC, OTHER ==
[~2021-04-22] VITALS: Ht 175.3 cm; Wt 111.3 kg
--- NOTE | 2021-04-22 11:58 | CR.PDOC ---
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 Patient admitted for monoclonal antibody treatment. Case discussed with nephrology, with recommendations to hold mycophenalate for 7 days. Patient has no other medical complaints. Denies chest pain, abdominal pain, N /V/D, headaches, changes in vision. ALLERGIES: Please see below. HOME MEDICATIONS: Please see below. PAST MEDICAL HISTORY: #left renal transplant PAST SURGICAL HISTORY: 1. 2. FAMILY HISTORY: Father: Denies Mother: lung cancer, still living SOCIAL HISTORY: Social drinker 2-3 drinks/month REVIEW OF SYSTEMS: Negative except as per HPI. PHYSICAL EXAMINATION: Vital Signs: reviewed General: NAD, lying comfortably in bed HEENT: NC/AT, EOMI Neck: supple, no masses Chest: lungs CTA B/L Heart: +S1S2, RRR Abd: soft, NT, ND, +BS, obese Ext: no edema Skin: no rashes, multiple tattoos MSK: full ROM at large joints Neuro: no gross focal deficits Psych: AAOx3 LABORATORY DATA: Please see below. A/P: 45 yo male for monoclonal antibody treatment for COVID 19 infection. #COVID-19 - monoclonal antibody treatment #renal transplant - discussed with nephrology to hold mycophenolate for 7 days #depression #HLD - follow up outpatient Allergies Coded Allergies: No Known Drug Allergies (Verified Allergy, Unknown, 04/22/21) Home Medications Scheduled Aspirin (Ecotrin) 81 Mg Tablet.dr, 81 MG PO DAILY, (Reported) Atorvastatin Calcium (Atorvastatin Calcium) 40 Mg Tablet, 40 MG PO QHS, (Reported) Cinacalcet HCl (Cinacalcet HCl) 30 Mg Tablet, 30 MG PO QHS, (Reported) Famotidine (Famotidine) 20 Mg Tablet, 20 MG PO BID, (Reported) Febuxostat (Febuxostat) 40 Mg Tablet, 40 MG PO QHS, (Reported) Mycophenolate Mofetil (Mycophenolate Mofetil) 500 Mg Tab, 500 MG PO BID, (Reported) Niacin (Niacin ER) 500 Mg Tab, 500 MG PO BID, (Reported) Prednisone (Prednisone) 5 Mg Tablet, 5 MG PO QHS, (Reported) Sertraline HCl (Sertraline HCl) 50 Mg Tablet, 50 MG PO QHS, (Reported) Tacrolimus (Tacrolimus) 1 Mg Capsule, 1.5 MG PO QAM, (Reported) TAKES WITH 0.5 TO MAKE 1.5 TOTAL Tacrolimus (Tacrolimus) 0.5 Mg Capsule, 0.5 MG PO QHS, (Reported) TAKES WITH 1MG TO MAKE 1.5MG TOTAL Scheduled PRN Acetaminophen (Tylenol) 325 Mg Tablet, 650 MG PO DAILY PRN for PAIN LEVEL 1-4, (Reported) PADILLA MERCER MD Apr 22, 2021 11:58
[~2021-04-22 14:40] MED LIST changes: +ACET-907 PO; +ALBUTEROL 90 MCG/ACT 8GM HFA INHALER INH PRN; +ALBUTEROL SULFATE 2.5 MG/0.5 ML INH NEB SOLN INH PRN; +CASIRIVIMAB/IMDEVIMAB 1,200 MG in NS 250 ML IV ONE; +ECOT81TA5 PO; +EPINEPHrine INJ 1 MG/ML 1ML AMP IM PRN; +NS 1,000 ML IV SCH; +PRED5TA PO; +TACR0.5C3 PO; +[UNRECOGNIZED DRUG - OTHER]; +diphenhydrAMINE 50MG/ML VIAL (J1200) IV PRN; +methylPREDNISolone 125MG 2ML VIAL IV PRN
[2021-04-22 14:53] VITALS: BP 126/75
[2021-04-22 15:40] VITALS: BP 130/84
[2021-04-22 16:30] VITALS: BP 141/91
[2021-04-22 17:50] VITALS: BP 137/89
== END 2021-04-22 18:00 | disposition home or self-care (01) ==
LOC: M OPCLI4 14:40 → M 4MAIN 14:41 → M OPCLI4 18:00
PROVIDERS: ATTEND Internal Medicine
DX: U07.1 COVID-19 (principal)

== ENCOUNTER → 2021-08-24 | Outpatient (REF) | payer BC, OTHER ==
[~2021-08-24] MED LIST changes: -ALBUTEROL 90 MCG/ACT 8GM HFA INHALER INH PRN; -ALBUTEROL SULFATE 2.5 MG/0.5 ML INH NEB SOLN INH PRN; -CASIRIVIMAB/IMDEVIMAB 1,200 MG in NS 250 ML IV ONE; -EPINEPHrine INJ 1 MG/ML 1ML AMP IM PRN; -NS 1,000 ML IV SCH; -diphenhydrAMINE 50MG/ML VIAL (J1200) IV PRN; -methylPREDNISolone 125MG 2ML VIAL IV PRN
== END ==
LOC: M LAB REF 13:27
PROVIDERS: ATTEND Internal Medicine Nephrology
DX: Z94.0 Kidney transplant status (principal)

== ENCOUNTER → 2023-10-31 | Outpatient (REF) | payer OTHER, BC ==
[~2023-10-31] MED LIST changes: -FEBU40TA2 PO; +FEBU40TA6 PO
== END ==
LOC: M SFHCDERM 18:07
PROVIDERS: ATTEND Physician Assistant
DX: D48.9 Neoplasm of uncertain behavior, unspecified (principal)

== ENCOUNTER 2024-01-25 12:49 | Emergency (ER) | payer BC, OTHER ==
[~2024-01-25] VITALS: Ht 175.3 cm; Wt 95.5 kg
[2024-01-25] MEDS: BOOSTRIX VACCINE (TETANUS/DIPHTH/ACEL. PERTUSSIS) 0.5ML SYR IM ONE (14:39)
[2024-01-25] MEDS: NS 1,000 ML IV ONE (14:55)
[2024-01-25 16:19] VITALS: BP 140/80; TEMP 97; O2SAT 99
== END 2024-01-25 16:23 | disposition short-term general hospital (02) ==
LOC: M ED 12:49
DX: S02.31XA Fracture of orbital floor, right side, initial encounter for closed fracture (principal); W22.8XXA Striking against or struck by other objects, initial encounter; Y92.9 Unspecified place or not applicable; Y93.9 Activity, unspecified; Y99.0 Civilian activity done for income or pay; Z94.0 Kidney transplant status; Z79.82 Long term (current) use of aspirin; Z79.899 Other long term (current) drug therapy